=== PATIENT | female | born 1960 | race Caucasian/White ===

== ENCOUNTER 2020-04-06 19:46 | Emergency (ER) | payer MEDICARE, MEDICAID ==
--- NOTE | 2020-04-06 20:35 | EDM.PDOC ---
ED HPI GENERAL MEDICAL PROBLEM - General Chief Complaint: Cardiovascular Problem Stated Complaint: BP HIGH AND HEADACHE PACEMAKER POSSIBLE AFIB Time Seen by Provider: 04/06/20 20:05 Source of Information: Reports: Patient History Limitations: Reports: No Limitations - History of Present Illness INITIAL COMMENTS - FREE TEXT/NARRATIVE: Ms. Elder is a very pleasant 59-year-old woman who now presents the ED with palpitations, a headache, and a concern about elevated blood pressure. She states that her palpitations feel like regular, fast, but "hard" heartbeats. They began last night, however, the patient has been experiencing these on and off over the past 15 years. They usually occur at night. When present, they typically persist for 5 to 10 minutes, and recently she has been experiencing about 10-15 episodes per day, including today. She is feeling them even here in the ED, although her patient monitor indicates atrial pacing between 61 to 74 bpm during my evaluation. With respect to her headaches, she indicates her upper left head, for the past 4 days. She states that she does not often get headaches. He believes that her headache is related to her allergic rhinitis, since she has recently had nasal and sinus congestion. She has allergy medicine, but states that she has not taken it recently. She has been taking Tylenol to treat them. She also reports that her blood pressure has been elevated, up to 150/105 earlier tonight, and up to 186/124 earlier today. The patient states that she ordinarily has night sweats, which have not changed. She reports occasional chest pain, although no recent nausea, dyspnea, or sense of impending doom. The patient states that she has been self-tapering herself off of morphine, down from 120 mg/day to 60 mg/day. Her behavioral health physician is aware of this and is now guiding her. Her behavioral health physician has also begun to taper her off of Xanax that she has been on for about a year, starting yesterday. The patient had been taking 1.5 mg po QPM + prn, and is now to take 0.5 mg QAM and 1 mg QPM. The patient states that she has presumptive COPD, and that she takes an inhaled steroid with long-acting beta agonist twice a day. She also has albuterol, but states that she has not taken any recently. Here in the ED, the patient's initial BP is found to be elevated at 173/101, otherwise, she is hemodynamically stable, afebrile, saturating 100% on room air. Other than the above symptoms, the patient denies having a recent fever, chills, sore throat, ear pain, cough, dyspnea, nausea, vomiting, constipation, diarrhea, abdominal pain, urinary symptoms, recent weight gain or weight loss, recent bloody bowel movements or black bowel movements, recent joint aches, or rashes. The patient's PCP is Dr. Kavya Anderson. Her Neurologist is Dr. Margarita Barnoe. She has an appointment to meet and establish Dr. Jj Dunn as her [employer]mediary on 04/16/2020. He has already received an influenza vaccine this season. Headache Pain Score (Numeric/FACES): 3 - Related Data Allergies Allergy/AdvReac Type Severity Reaction Status Date / Time cortisone Allergy Other Verified 04/06/20 19:59 latex Allergy Other Verified 04/06/20 19:59 Penicillins Allergy Cannot Verified 04/06/20 19:59 Remember Sulfa (Sulfonamide Allergy Rash Verified 04/06/20 19:59 Antibiotics) Home Meds: Home Meds Albuterol [Proventil Neb Soln] 1 ampule INH TID 04/06/20 [History] Alendronate [Fosamax] 04/06/20 [History] Apixaban [Eliquis] 5 mg PO BID 04/06/20 [History] Budesonide/Formoterol Fumarate [Symbicort 160-4.5 Mcg Inhaler] 2 puff INH BID 04/06/20 [History] Cholecalciferol (Vitamin D3) [Vitamin D3] 5,000 unit PO DAILY 04/06/20 [History] Diclofenac Sodium [Voltaren] 04/06/20 [History] Divalproex Sodium 500 mg PO DAILY 04/06/20 [History] Famotidine 20 mg PO DAILY 04/06/20 [History] Furosemide 20 mg PO BID 04/06/20 [History] Metoprolol Succinate 50 mg PO BID 04/06/20 [History] Morphine Sulfate [Morphine Sulfate ER] 30 mg PO BID 04/06/20 [History] Pantoprazole Sodium [Protonix] 40 mg PO DAILY 04/06/20 [History] Triamterene/Hydrochlorothiazid [Triamterene-HCTZ 37.5-25 MG] 1 tab PO DAILY 04/06/20 [History] Verapamil [Calan] 80 mg PO DAILY 04/06/20 [History] atorvaSTATin [Lipitor] 10 mg PO DAILY 04/06/20 [History] busPIRone [Buspar] 5 mg OP DAILY 04/06/20 [History] Past Medical History HEENT History: Reports: Allergic Rhinitis (untreated), Impaired Vision Cardiovascular History: Reports: Afib (dx'd Jun 2019), High Cholesterol, Hypertension Respiratory History: Reports: COPD (suspected, not tested), Sleep Apnea (nightly CPAP 9) Gastrointestinal History: Reports: GERD 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) Musculoskeletal History: Reports: Osteoarthritis, Osteoporosis Neurological History: Reports: MS Psychiatric History: Reports: Anxiety, Depression, Other (See Below) (Fibromyalgia) Endocrine/Metabolic History: Reports: Obesity/BMI 30+ Hematologic History: Reports: B12 Deficiency - Infectious Disease History Infectious Disease History: Reports: Hepatitis C (treated and cured) - Past Surgical History HEENT Surgical History: Reports: Oral Surgery (dental extractions), Polypectomy (vocal cord, x 3), Tonsillectomy Cardiovascular Surgical History: Reports: Pacer (placed 2001 for bradycardia, not A-fib) GI Surgical History: Reports: Appendectomy, Cholecystectomy (around 2002) Female Surgical History: Reports: Hysterectomy (complete), Other (See Below) (Unilateral salpingectomy for tubal . Bladder suspension.) Musculoskeletal Surgical History: Reports: Arthroscopic Knee, Carpal Tunnel (bi lateral) Social & Family History - Family History Family Medical History: No Pertinent Family History - Tobacco Use Tobacco Use Status *Q: Current Every Day Tobacco User Years of Tobacco use: 46 Packs/Tins Daily: 0.3 Packs/Tins Daily Comment: Down from 1 ppd - Caffeine Use Caffeine Use: Reports: Coffee, Tea - Alcohol Use Alcohol Use History: No - Recreational Drug Use Recreational Drug Use: No - Living Situation & Occupation Living situation: Reports: , Alone Occupation: Disabled ED ROS GENERAL - Review of Systems Review Of Systems: Comprehensive ROS is negative, except as noted in HPI. ED EXAM, GENERAL - Physical Exam Exam: See Below Exam Limited By: No Limitations General Appearance: Alert, WD/WN, No Apparent Distress Eye Exam: Bilateral Eye: EOMI, Normal Inspection Ears: Normal External Exam, Hearing Grossly Normal Nose: Normal Inspection Throat/Mouth: Normal Inspection, Normal Lips, Normal Voice, No Airway Compromise Head: Atraumatic, Normocephalic Neck: Normal Inspection, Full Range of Motion Respiratory/Chest: No Respiratory Distress, Lungs Clear, Normal Breath Sounds, No Accessory Muscle Use Cardiovascular: Normal Peripheral Pulses, Regular Rate, Rhythm, No Edema, No Gallop, No JVD, No Murmur, No Rub Peripheral Pulses: 3+: Radial (L), Radial (R) GI/Abdominal: Normal Bowel Sounds, Soft, Non-Tender, No Organomegaly, No Distention, No Abnormal Bruit, No Mass Back Exam: Normal Inspection, Full Range of Motion, NT Extremities: Normal Inspection, Normal Range of Motion, No Pedal Edema, Normal Capillary Refill Neurological: Alert, Oriented, Normal Cognition, No Motor/Sensory Deficits Psychiatric: Normal Affect Skin Exam: Warm, Dry, Intact, Normal Color, No Rash #1 Interpretation EKG Date: 04/06/20 Time: 20:44 Rhythm: Other (Atrially paced) Rate (Beats/Min): 62 Sandwich: Normal P-Wave: Present QRS: Normal ST-T: Normal QT: Normal Comparison: NA - No Prior EKG Course - Vital Signs Last Recorded V/S: Last Vital Signs Temp 36.4 C 04/06/20 19:54 Pulse 70 04/06/20 19:54 Resp 20 04/06/20 19:54 BP 173/101 H 04/06/20 19:54 Pulse Ox 100 04/06/20 19:54 - Orders/Labs/Meds Orders: Active Orders 24 hr Category Date Time Status EKG Documentation Completion [RC] STAT Care 04/06/20 20:31 Active Chest 2V [CR] Stat Exams 04/06/20 20:31 Taken Labs: Laboratory Tests 04/06/20 04/06/20 Range/Units 20:49 20:49 WBC 4.90 (3.98-10.04) K/mm3 RBC 4.42 (3.98-5.22) M/mm3 Hgb 12.9 (11.2-15.7) gm/dl Hct 39.1 (34.1-44.9) % MCV 88.5 (79.4-94.8) fl MCH 29.2 (25.6-32.2) pg MCHC 33.0 (32.2-35.5) g/dl RDW Std Deviation 43.8 (36.4-46.3) fL Plt Count 184 (182-369) K/mm3 MPV 10.2 (9.4-12.3) fl Neutrophils % (Manual) 45 (40-60) % Band Neutrophils % 1 (0-10) % Lymphocytes % (Manual) 45 H (20-40) % Atypical Lymphs % 0 % Monocytes % (Manual) 7 (2-10) % Eosinophils % (Manual) 2 (0.7-5.8) % Basophils % (Manual) 0 L (0.1-1.2) Platelet Estimate Adequate RBC Morph Comment Normal Sodium 137 (136-145) mEq/L Potassium 4.2 (3.5-5.1) mEq/L Chloride 102 (98-107) mEq/L Carbon Dioxide 32 (21-32) mEq/L Anion Gap 7.2 (5-15) BUN 16 (7-18) mg/dL Creatinine 0.9 (0.55-1.02) mg/dL Est Cr Clr Drug Dosing 66.26 mL/min Estimated GFR (MDRD) > 60 (>60) mL/min BUN/Creatinine Ratio 17.8 (14-18) Glucose 99 (74-106) mg/dL Calcium 9.0 (8.5-10.1) mg/dL Magnesium 1.9 (1.8-2.4) mg/dl Total Bilirubin 0.3 (0.2-1.0) mg/dL AST 19 (15-37) U/L ALT 21 (14-59) U/L Alkaline Phosphatase 55 (46-116) U/L Troponin I < 0.017 (0.00-0.056) ng/mL Total Protein 7.4 (6.4-8.2) g/dl Albumin 3.4 (3.4-5.0) g/dl Globulin 4.0 gm/dL Albumin/Globulin Ratio 0.9 L (1-2) - Re-Assessments/Exams Free Text/Narrative Re-Assessment/Exam: 04/06/20 20:32 While the patient feels palpitations here in the ED, her patient monitor indicated a HR of 61 to 74 bpm, paced, during my entire evaluation.I think it is most likely that her symptoms, are related to her beginning a taper off of alprazolam last night, in the setting of her continuing taper of morphine. Nevertheless, I have ordered a work-up that includes several blood tests, IV chest x-ray, and an ECG. 04/06/20 22:27 2-view chest radiograph is read by the read as: 1. No acute cardiopulmonary process. 2. Incidental/nonacute findings are listed in the report. The patient's CBC, CMP, magnesium level, and troponin are all within normal limits/unremarkable. 04/06/20 22:30 Test results discussed with the patient. As above, today's work-up is completely unremarkable. I suspect that her sensation of palpitations is related to her beginning taper of Xanax. I explained to her that she should expect to have symptoms going forward, but that it is really important that she get off Xanax, therefore she should stay the course as recommended by her physician. She is agreeable. Departure - Departure Time of Disposition: 22:31 Disposition: Home, Self-Care 01 Condition: Good Clinical Impression: Palpitations, Headache, Elevated blood pressure reading - Discharge Information *PRESCRIPTION DRUG MONITORING PROGRAM REVIEWED*: Not Applicable *COPY OF PRESCRIPTION DRUG MONITORING REPORT IN PATIENT CARLYN: Not Applicable Referrals: Kavya Anderson MD [Primary Care Provider] - Jj Dunn MD [Ordering Only Provider] - Margarita Barone MD [Ordering Only Provider] - Forms: ED Department Discharge Additional Instructions: You were seen in the emergency room for intermittent heart palpitations, elevated blood pressure, and a headache. Work-up in the ER included several blood tests, a chest x-ray, and an ECG. Your ECG demonstrated an atrial paced rhythm at a normal rate. Otherwise, your entire work-up was completely normal. Based on your history, physical exam, and ER tests, your symptoms are most likely related to the tapering of your alprazolam (Xanax). As discussed, you should expect to have some symptoms when you taper off of alprazolam, however, it is really important that you do, and we recommend that you stay the course, as prescribed by your behavioral health physician. If any other problems, please do not hesitate to return to the ER. Sepsis Event Note (ED) - Evaluation Sepsis Screening Result: No Definite Risk - Focused Exam Vital Signs: Vital Signs Temp Pulse Resp BP Pulse Ox 12/12/20 19:54 36.4 C 70 20 173/101 H 100 - My Orders Last 24 Hours: My Active Orders 04/06/20 20:31 EKG Documentation Completion [RC] STAT Chest 2V [CR] Stat - Assessment/Plan Last 24 Hours: My Active Orders 04/06/20 20:31 EKG Documentation Completion [RC] STAT Chest 2V [CR] Stat
--- NOTE | 2020-04-07 09:51 | CR ---
Chest: 2 views of the chest were obtained. Comparison: No prior studies available. Findings: Heart size is within normal limits. Tortuous thoracic aorta is seen. Bichamber pacemaker is noted. Lungs are clear with no acute parenchymal change. Bony structures appear within normal limits for the patient's age. Impression: 1. Findings as noted above. 2. Nothing acute is seen. Diagnostic code #2 I agree with preliminary report from [facility], finalized on 04/06/20, 10:35 PM BEFORE [employer]
== END 2020-04-06 22:43 | disposition home or self-care (01) ==
LOC: JD.ED 19:46
DX: R00.2 Palpitations (principal); R51.9 Headache, unspecified; E78.00 Pure hypercholesterolemia, unspecified; I10 Essential (primary) hypertension; J44.9 Chronic obstructive pulmonary disease, unspecified; M19.90 Unspecified osteoarthritis, unspecified site; F41.9 Anxiety disorder, unspecified; F32.9 Major depressive disorder, single episode, unspecified; E66.9 Obesity, unspecified; F17.210 Nicotine dependence, cigarettes, uncomplicated; I48.91 Unspecified atrial fibrillation; K21.9 Gastro-esophageal reflux disease without esophagitis; G35 Multiple sclerosis; Z91.040 Latex allergy status; Z88.0 Allergy status to penicillin; Z88.2 Allergy status to sulfonamides; Z79.01 Long term (current) use of anticoagulants; Z79.899 Other long term (current) drug therapy; Z68.30 Body mass index [BMI] 30.0-30.9, adult
CPT/HCPCS: 36415; 71046; 71046-26; 80053; 83735; 84484; 85007; 85027; 93005; 93010; 99284; 99285-25

== ENCOUNTER 2020-07-26 17:24 | Emergency (ER) | payer MEDICARE, MEDICAID | END 2020-07-26 17:33 | disposition left against medical advice (07) | LOC: JD.ED 17:24 | DX: Z53.21 Procedure and treatment not carried out due to patient leaving prior to being seen by health care provider (principal) ==

== ENCOUNTER 2020-08-16 14:19 | Emergency (ER) | payer MEDICARE, MEDICAID ==
--- NOTE | 2020-08-16 14:55 | CR ---
Chest: PA and lateral views of the chest are obtained. Comparison: Prior chest x-ray of 04/06/20. Heart size and mediastinum are within normal limits. Slight tortuosity of the thoracic aorta is noted. Minimal scarring is seen within the lateral left costophrenic angle. Lungs otherwise are clear. Bichamber pacemaker is noted. No acute osseous abnormality is appreciated. Surgical clips are seen from prior cholecystectomy. Impression: 1. Findings believed to be incidental as noted above. 2. Nothing acute is seen. Diagnostic code #2
--- NOTE | 2020-08-16 15:02 | EDM.PDOC ---
ED HPI GENERAL MEDICAL PROBLEM - General Chief Complaint: Chest Pain Stated Complaint: CHEST PAIN Time Seen by Provider: 08/16/20 14:22 Source of Information: Reports: Patient, RN Notes Reviewed History Limitations: Reports: No Limitations - History of Present Illness INITIAL COMMENTS - FREE TEXT/NARRATIVE: Patient is a 60-year-old female presenting to the emergency department with complaints of intermittent left-sided chest pain. She states that symptoms began around 9 AM this morning. She describes it as a sharp stabbing pain that comes and goes. When symptoms initially began, the pain would last for a number of minutes, "taking her breath away ". At this time, the pain occurs very briefly. Lasts only a second and then resolves. She has a history of A. fib and has a will chamber pacemaker. She also has a history of MS and fibromyalgia. Her primary care provider is in the process of weaning her off of her morphine at the patient's request. At one time she was on 120 mg/day of morphine. At this time she is only on 30 mg of morphine. Her last titration was in the middle of June and she was reduced from 45 mg down to 30 mg. She denies any shortness of breath at this time. Pain does not radiate anywhere and was not present at the time my exam. She is on Eliquis for history of A. fib. Left Chest Pain Score (Numeric/FACES): 10 - Related Data Allergies Allergy/AdvReac Type Severity Reaction Status Date / Time cortisone Allergy Other Verified 04/06/20 19:59 latex Allergy Other Verified 04/06/20 19:59 Penicillins Allergy Cannot Verified 04/06/20 19:59 Remember Sulfa (Sulfonamide Allergy Rash Verified 04/06/20 19:59 Antibiotics) Home Meds: Home Meds Albuterol [Proventil Neb Soln] 1 ampule INH TID 04/06/20 [History] Alendronate [Fosamax] 04/06/20 [History] Apixaban [Eliquis] 5 mg PO BID 04/06/20 [History] Budesonide/Formoterol Fumarate [Symbicort 160-4.5 Mcg Inhaler] 2 puff INH BID 04/06/20 [History] Cholecalciferol (Vitamin D3) [Vitamin D3] 5,000 unit PO DAILY 04/06/20 [History] Diclofenac Sodium [Voltaren] 12/12/20 [History] Divalproex Sodium 500 mg PO DAILY 04/06/20 [History] Famotidine 20 mg PO DAILY 04/06/20 [History] Furosemide 20 mg PO BID 04/06/20 [History] Metoprolol Succinate 50 mg PO BID 04/06/20 [History] Morphine Sulfate [Morphine Sulfate ER] 30 mg PO BID 04/06/20 [History] Pantoprazole Sodium [Protonix] 40 mg PO DAILY 04/06/20 [History] Triamterene/Hydrochlorothiazid [Triamterene-HCTZ 37.5-25 MG] 1 tab PO DAILY 04/06/20 [History] Verapamil [Calan] 80 mg PO DAILY 04/06/20 [History] atorvaSTATin [Lipitor] 10 mg PO DAILY 04/06/20 [History] busPIRone [Buspar] 5 mg OP DAILY 04/06/20 [History] Past Medical History HEENT History: Reports: Allergic Rhinitis (untreated), Impaired Vision Cardiovascular History: Reports: Afib (dx'd Jun 2019), High Cholesterol, Hypertension Respiratory History: Reports: COPD (suspected, not tested), Sleep Apnea (nightly CPAP 9) Gastrointestinal History: Reports: GERD 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) Musculoskeletal History: Reports: Osteoarthritis, Osteoporosis Neurological History: Reports: MS Psychiatric History: Reports: Anxiety, Depression, Other (See Below) (Fibromyalgia) Endocrine/Metabolic History: Reports: Obesity/BMI 30+ Hematologic History: Reports: B12 Deficiency - Infectious Disease History Infectious Disease History: Reports: Hepatitis C (treated and cured) Other Infectious Disease History: cured hep c - Past Surgical History HEENT Surgical History: Reports: Oral Surgery (dental extractions), Polypectomy (vocal cord, x 3), Tonsillectomy Cardiovascular Surgical History: Reports: Pacer (placed 2001 for bradycardia, not A-fib) GI Surgical History: Reports: Appendectomy, Cholecystectomy (around 2002) Female Surgical History: Reports: Hysterectomy (complete), Other (See Below) (Unilateral salpingectomy for tubal . Bladder suspension.) Musculoskeletal Surgical History: Reports: Arthroscopic Knee, Carpal Tunnel (bilateral) Social & Family History - Family History Family Medical History: No Pertinent Family History - Caffeine Use Caffeine Use: Reports: Coffee, Tea - Living Situation & Occupation Living situation: Reports: , Alone Occupation: Disabled ED ROS GENERAL - Review of Systems Review Of Systems: See Below Constitutional: Reports: No Symptoms. Denies: Fever, Chills, Weakness HEENT: Reports: No Symptoms Respiratory: Reports: No Symptoms. Denies: Shortness of Breath, Cough Cardiovascular: Reports: Chest Pain (intermittent). Denies: Lightheadedness, Palpitations, Syncope Endocrine: Reports: No Symptoms GI/Abdominal: Reports: No Symptoms : Reports: No Symptoms Musculoskeletal: Reports: No Symptoms Skin: Reports: No Symptoms Neurological: Reports: No Symptoms Psychiatric: Reports: No Symptoms Hematologic/Lymphatic: Reports: No Symptoms Immunologic: Reports: No Symptoms ED EXAM, GENERAL - Physical Exam Exam: See Below Exam Limited By: No Limitations General Appearance: Alert, WD/WN, No Apparent Distress Respiratory/Chest: No Respiratory Distress, Lungs Clear, Normal Breath Sounds, No Accessory Muscle Use, Other (tenderness to palpation to the left 4 and 5th ribs, mid clavicular line) Cardiovascular: Normal Peripheral Pulses, Regular Rate, Rhythm, No Edema, No Gallop, No JVD, No Murmur, No Rub Neurological: Alert, Oriented, CN II-XII Intact, Normal Cognition, Normal Gait, Normal Reflexes, No Motor/Sensory Deficits Psychiatric: Normal Affect, Normal Mood Skin Exam: Warm, Dry, Intact, Normal Color, No Rash Course - Vital Signs Last Recorded V/S: Last Vital Signs Temp 97.4 F 08/16/20 16:49 Pulse 64 08/16/20 16:49 Resp 16 08/16/20 16:49 BP 152/92 H 08/16/20 16:49 Pulse Ox 96 08/16/20 16:49 - Orders/Labs/Meds Labs: Laboratory Tests 08/16/20 08/16/20 08/16/20 Range/Units 14:45 14:45 14:45 WBC 5.65 (3.98-10.04) K/mm3 RBC 4.77 (3.98-5.22) M/mm3 Hgb 14.4 D (11.2-15.7) gm/dl Hct 43.1 (34.1-44.9) % MCV 90.4 (79.4-94.8) fl MCH 30.2 (25.6-32.2) pg MCHC 33.4 (32.2-35.5) g/dl RDW Std Deviation 45.2 (36.4-46.3) fL Plt Count 237 (182-369) K/mm3 MPV 10.2 (9.4-12.3) fl Neut % (Auto) 40.1 (34.0-71.1) % Lymph % (Auto) 43.5 (19.3-51.7) % Edmunds % (Auto) 9.9 (4.7-12.5) % Eos % (Auto) 5.8 (0.7-5.8) Baso % (Auto) 0.5 (0.1-1.2) % Neut # (Auto) 2.26 (1.56-6.13) K/mm3 Lymph # (Auto) 2.46 (1.18-3.74) K/mm3 Edmunds # (Auto) 0.56 H (0.24-0.36) K/mm3 Eos # (Auto) 0.33 (0.04-0.36) K/mm3 Baso # (Auto) 0.03 (0.01-0.08) K/mm3 D-Dimer, Quantitative 0.27 (0.19-0.50) mg/L Sodium 145 (136-145) mEq/L Potassium 4.1 (3.5-5.1) mEq/L Chloride 104 (98-107) mEq/L Carbon Dioxide 31 (21-32) mEq/L Anion Gap 14.1 (5-15) BUN 12 (7-18) mg/dL Creatinine 0.9 (0.55-1.02) mg/dL Est Cr Clr Drug Dosing 65.45 mL/min Estimated GFR (MDRD) > 60 (>60) mL/min BUN/Creatinine Ratio 13.3 L (14-18) Glucose 88 (74-106) mg/dL Calcium 9.4 (8.5-10.1) mg/dL Magnesium (1.8-2.4) mg/dl Total Bilirubin 0.3 (0.2-1.0) mg/dL AST 16 (15-37) U/L ALT 25 (14-59) U/L Alkaline Phosphatase 43 L (46-116) U/L Troponin I < 0.017 (0.00-0.056) ng/mL C-Reactive Protein <0.2 (<1.0) mg/dL Total Protein 8.4 H (6.4-8.2) g/dl Albumin 4.1 (3.4-5.0) g/dl Globulin 4.3 gm/dL Albumin/Globulin Ratio 1.0 (1-2) 08/16/20 Range/Units 14:45 WBC (3.98-10.04) K/mm3 RBC (3.98-5.22) M/mm3 Hgb (11.2-15.7) gm/dl Hct (34.1-44.9) % MCV (79.4-94.8) fl MCH (25.6-32.2) pg MCHC (32.2-35.5) g/dl RDW Std Deviation (36.4-46.3) fL Plt Count (182-369) K/mm3 MPV (9.4-12.3) fl Neut % (Auto) (34.0-71.1) % Lymph % (Auto) (19.3-51.7) % Edmunds % (Auto) (4.7-12.5) % Eos % (Auto) (0.7-5.8) Baso % (Auto) (0.1-1.2) % Neut # (Auto) (1.56-6.13) K/mm3 Lymph # (Auto) (1.18-3.74) K/mm3 Edmunds # (Auto) (0.24-0.36) K/mm3 Eos # (Auto) (0.04-0.36) K/mm3 Baso # (Auto) (0.01-0.08) K/mm3 D-Dimer, Quantitative (0.19-0.50) mg/L Sodium (136-145) mEq/L Potassium (3.5-5.1) mEq/L Chloride (98-107) mEq/L Carbon Dioxide (21-32) mEq/L Anion Gap (5-15) BUN (7-18) mg/dL Creatinine (0.55-1.02) mg/dL Est Cr Clr Drug Dosing mL/min Estimated GFR (MDRD) (>60) mL/min BUN/Creatinine Ratio (14-18) Glucose (74-106) mg/dL Calcium (8.5-10.1) mg/dL Magnesium 2.1 (1.8-2.4) mg/dl Total Bilirubin (0.2-1.0) mg/dL AST (15-37) U/L ALT (14-59) U/L Alkaline Phosphatase (46-116) U/L Troponin I (0.00-0.056) ng/mL C-Reactive Protein (<1.0) mg/dL Total Protein (6.4-8.2) g/dl Albumin (3.4-5.0) g/dl Globulin gm/dL Albumin/Globulin Ratio (1-2) - Re-Assessments/Exams Free Text/Narrative Re-Assessment/Exam: Patient is a 60-year-old female presenting to the emergency department with complaints of intermittent left-sided chest pain. She states symptoms began around 9:00 this morning. When initially began, the pain was present for approximately an hour at a time. She now just gets occasional sharp pain in the area which lasts just a second. She has a history of A. fib. Vital signs are stable. I have ordered CBC, CMP, CRP, D-dimer, troponin, magnesium, EKG, and chest x-ray. 08/16/20 16:09 Hematology is grossly unremarkable. Troponin is undetectable D-dimer is negative. EKG shows an atrial paced rhythm with no signs of ischemia. Chest x- ray shows no acute abnormalities. Discussed with patient that this discomfort is likely chest wall muscle spasms. She has had no recurrence of the chest pain in the last half hour. We will discharge her home. Discussed return precautions. Discharge instructions as documented. Departure - Departure Time of Disposition: 16:10 Disposition: Home, Self-Care 01 Condition: Good Clinical Impression: Atypical chest pain Instructions: Nonspecific Chest Pain, Adult Referrals: Kavya Anderson MD [Primary Care Provider] - Forms: ED Department Discharge Additional Instructions: You were seen in the emergency department today for evaluation with regards to intermittent left-sided chest pain which began around 9:00 this morning. Work- up included blood work, EKG, and chest x-ray. Results of your work-up were found to be normal. Your cardiac enzyme is undetectable indicating that you are not having a heart attack. Your EKG showed an atrial paced rhythm. There was no evidence of A. fib. While the exact cause of your chest discomfort is unknown, it is likely related to chest wall muscle spasms. Recommend intermittent Tylenol or ibuprofen as needed for discomfort. You may apply heat to the area as well. If you should experience any new or worsening symptoms of concern, please not hesitate to return to the emergency department for reevaluation. Sepsis Event Note (ED) - Evaluation Sepsis Screening Result: No Definite Risk - Focused Exam Vital Signs: Vital Signs Temp Pulse Resp BP Pulse Ox 08/16/20 16:49 97.4 F 64 16 152/92 H 96 08/16/20 14:25 97.5 F 63 16 153/92 H 100
== END 2020-08-16 16:50 | disposition home or self-care (01) ==
LOC: JD.ED 14:19
DX: R07.89 Other chest pain (principal); I48.91 Unspecified atrial fibrillation; E78.00 Pure hypercholesterolemia, unspecified; I10 Essential (primary) hypertension; J44.9 Chronic obstructive pulmonary disease, unspecified; K21.9 Gastro-esophageal reflux disease without esophagitis; G35 Multiple sclerosis; E66.9 Obesity, unspecified; Z68.29 Body mass index [BMI] 29.0-29.9, adult; Z88.8 Allergy status to other drugs, medicaments and biological substances; Z91.040 Latex allergy status; Z88.0 Allergy status to penicillin; Z88.2 Allergy status to sulfonamides; Z79.01 Long term (current) use of anticoagulants; Z79.899 Other long term (current) drug therapy
CPT/HCPCS: 36415; 71046; 71046-26; 80053; 83735; 84484; 85025; 85379; 86140; 93005; 99283; 99285-25

== ENCOUNTER 2021-01-11 08:17 | Emergency (ER) | payer MEDICARE, MEDICAID ==
--- NOTE | 2021-01-11 08:34 | EDM.PDOC ---
ED HPI GENERAL MEDICAL PROBLEM - General Chief Complaint: Chest Pain Stated Complaint: RT SIDE CHEST PAIN WHEN BREATHING Time Seen by Provider: 01/11/21 08:33 - History of Present Illness INITIAL COMMENTS - FREE TEXT/NARRATIVE: 60-year-old female presents the emergency room with chest pain. This pain has been present for about an hour or so it is on the right lower chest anterior. It is aggravated by change position and deep breathing. The patient has a history of pleurisy in the past and this reminds her of this. Other than the chest discomfort she is not having any breathing difficulties or shortness of breath. Patient has chronic lower extremity edema she has not taken her Lasix at this morning. Patient has a history of lower extremity edema and has mild edema at this point, this is not unusual for her. Right Lower Chest Pain Score (Numeric/FACES): 10 - Related Data Allergies Allergy/AdvReac Type Severity Reaction Status Date / Time cortisone Allergy Other Verified 01/11/21 08:30 latex Allergy Other Verified 01/11/21 08:30 Penicillins Allergy Cannot Verified 01/11/21 08:30 Remember Sulfa (Sulfonamide Allergy Rash Verified 01/11/21 08:30 Antibiotics) Home Meds: Home Meds Albuterol [Proventil Neb Soln] 1 ampule INH TID 04/06/20 [History] Alendronate [Fosamax] 04/06/20 [History] Apixaban [Eliquis] 5 mg PO BID 04/06/20 [History] Budesonide/Formoterol Fumarate [Symbicort 160-4.5 Mcg Inhaler] 2 puff INH BID 04/06/20 [History] Cholecalciferol (Vitamin D3) [Vitamin D3] 5,000 unit PO DAILY 04/06/20 [History] Diclofenac Sodium [Voltaren] 04/06/20 [History] Divalproex Sodium 500 mg PO DAILY 04/06/20 [History] Famotidine 20 mg PO DAILY 04/06/20 [History] Furosemide 20 mg PO BID 04/06/20 [History] Metoprolol Succinate 50 mg PO BID 04/06/20 [History] Morphine Sulfate [Morphine Sulfate ER] 30 mg PO BID 04/06/20 [History] Pantoprazole Sodium [Protonix] 40 mg PO DAILY 04/06/20 [History] Triamterene/Hydrochlorothiazid [Triamterene-HCTZ 37.5-25 MG] 1 tab PO DAILY 04/06/20 [History] Verapamil [Calan] 80 mg PO DAILY 04/06/20 [History] atorvaSTATin [Lipitor] 10 mg PO DAILY 04/06/20 [History] busPIRone [Buspar] 5 mg OP DAILY 04/06/20 [History] Past Medical History HEENT History: Reports: Allergic Rhinitis, Impaired Vision Cardiovascular History: Reports: Afib, High Cholesterol, Hypertension Respiratory History: Reports: COPD, Sleep Apnea Gastrointestinal History: Reports: GERD COLLAR SEWER History: Reports: Ectopic Musculoskeletal History: Reports: Osteoporosis, Osteoarthritis Neurological History: Reports: Headaches, Chronic, MS, Other (See Below) Other Neuro History: fibromyalgia Psychiatric History: Reports: Addiction, Anxiety, Depression, Other (See Below) Other Psychiatric History: pain management Endocrine/Metabolic History: Reports: Obesity/BMI 30+ Hematologic History: Reports: B12 Deficiency Immunologic History: Reports: Other (See Below) Other Immunologic History: states "I usually get everything that goes by." - Infectious Disease History Infectious Disease History: Reports: Hepatitis C, Shingles Other Infectious Disease History: cured hep c - Past Surgical History HEENT Surgical History: Reports: Oral Surgery, Polypectomy, Tonsillectomy Cardiovascular Surgical History: Reports: Pacer GI Surgical History: Reports: Appendectomy, Cholecystectomy Female Surgical History: Reports: Hysterectomy, Other (See Below) Musculoskeletal Surgical History: Reports: Arthroscopic Knee, Carpal Tunnel Social & Family History - Family History Family Medical History: No Pertinent Family History - Caffeine Use Caffeine Use: Reports: Coffee, Tea - Living Situation & Occupation Living situation: Reports: Alone, Occupation: Disabled ED ROS GENERAL - Review of Systems Review Of Systems: See Below Constitutional: Reports: No Symptoms HEENT: Reports: No Symptoms Respiratory: Reports: Other (Deep breathing causes pain) Cardiovascular: Reports: Chest Pain (With deep breathing) Endocrine: Reports: No Symptoms GI/Abdominal: Reports: No Symptoms : Reports: No Symptoms Neurological: Reports: No Symptoms ED EXAM, GENERAL - Physical Exam Exam: See Below Exam Limited By: No Limitations General Appearance: Alert, No Apparent Distress Head: Atraumatic, Normocephalic Neck: Normal Inspection, Supple, Non-Tender, Full Range of Motion. No: Lymphadenopathy (L), Lymphadenopathy (R) Respiratory/Chest: No Respiratory Distress, Lungs Clear, Normal Breath Sounds Cardiovascular: Regular Rate, Rhythm, No Murmur, Other (Trace lower extremity edema, normal for her) GI/Abdominal: Normal Bowel Sounds, Soft, Non-Tender, No Organomegaly, No Distention, No Abnormal Bruit, No Mass Back Exam: Normal Inspection. No: CVA Tenderness (L), CVA Tenderness (R) Extremities: Normal Inspection, Pedal Edema (Trace normal for her she does not take her Lasix at today) Neurological: Alert, Oriented, Normal Cognition #1 Interpretation EKG Date: 01/11/21 Rhythm: Other (Atrial paced rate 61) [place]: Normal P-Wave: Present QRS: Other ST-T: Other (Inverted T waves lead III) QT: Normal Comparison: No Change (No significant change from 08/16/2020) EKG Interpretation Comments: Abnormal EKG Course - Vital Signs Last Recorded V/S: Last Vital Signs Temp 36.1 C 01/11/21 11:15 Pulse 62 01/11/21 11:15 Resp 13 01/11/21 11:15 BP 122/67 01/11/21 11:15 Pulse Ox 100 01/11/21 11:15 - Orders/Labs/Meds Orders: Active Orders 24 hr Category Date Time Status Sodium Chloride 0.9% [Saline Flush] Med 01/11/21 11:31 Active 10 ml FLUSH ONETIME PRN Medication Orders Sodium Chloride (Sodium Chloride 0.9% 10 Ml Syringe) 10 ml FLUSH ONETIME PRN PRN Reason: Keep Vein Open Last Admin: 01/11/21 12:45 Dose: 10 ml Documented by: ISAAC Labs: Laboratory Tests 01/11/21 01/11/21 01/11/21 Range/Units 08:35 08:35 08:35 WBC 5.81 (3.98-10.04) K/mm3 RBC 4.67 (3.98-5.22) M/mm3 Hgb 14.7 (11.2-15.7) gm/dl Hct 43.3 (34.1-44.9) % MCV 92.7 (79.4-94.8) fl MCH 31.5 (25.6-32.2) pg MCHC 33.9 (32.2-35.5) g/dl RDW Std Deviation 49.2 H (36.4-46.3) fL Plt Count 242 (182-369) K/mm3 MPV 10.7 (9.4-12.3) fl Neut % (Auto) 60.8 (34.0-71.1) % Lymph % (Auto) 28.4 (19.3-51.7) % [place] % (Auto) 7.9 (4.7-12.5) % Eos % (Auto) 2.4 (0.7-5.8) Baso % (Auto) 0.3 (0.1-1.2) % Neut # (Auto) 3.53 (1.56-6.13) K/mm3 Lymph # (Auto) 1.65 (1.18-3.74) K/mm3 [place] # (Auto) 0.46 H (0.24-0.36) K/mm3 Eos # (Auto) 0.14 (0.04-0.36) K/mm3 Baso # (Auto) 0.02 (0.01-0.08) K/mm3 ESR (0-20) mm/hr PT 10.8 (9.7-12.0) SECONDS INR 0.97 APTT 29.0 (21.7-31.4) SECONDS D-Dimer, Quantitative (0.19-0.50) mg/L Sodium 141 (136-145) mEq/L Potassium 3.7 (3.5-5.1) mEq/L Chloride 106 (98-107) mEq/L Carbon Dioxide 28 (21-32) mEq/L Anion Gap 10.7 (5-15) BUN 7 (7-18) mg/dL Creatinine 0.8 (0.55-1.02) mg/dL Est Cr Clr Drug Dosing 73.63 mL/min Estimated GFR (MDRD) > 60 (>60) mL/min BUN/Creatinine Ratio 8.8 L (14-18) Glucose 79 (70-99) mg/dL Calcium 9.1 (8.5-10.1) mg/dL Total Bilirubin 0.5 (0.2-1.0) mg/dL AST 13 L (15-37) U/L ALT 20 (14-59) U/L Alkaline Phosphatase 40 L (46-116) U/L Troponin I < 0.017 (0.00-0.056) ng/mL C-Reactive Protein <0.2 (<1.0) mg/dL Total Protein 8.2 (6.4-8.2) g/dl Albumin 4.2 (3.4-5.0) g/dl Globulin 4.0 gm/dL Albumin/Globulin Ratio 1.1 (1-2) Lipase (73-393) U/L SARS-CoV-2 RNA (ANITA) (NEGATIVE) 01/11/21 01/11/21 01/11/21 Range/Units 08:35 08:35 08:35 WBC (3.98-10.04) K/mm3 RBC (3.98-5.22) M/mm3 Hgb (11.2-15.7) gm/dl Hct (34.1-44.9) % MCV (79.4-94.8) fl MCH (25.6-32.2) pg MCHC (32.2-35.5) g/dl RDW Std Deviation (36.4-46.3) fL Plt Count (182-369) K/mm3 MPV (9.4-12.3) fl Neut % (Auto) (34.0-71.1) % Lymph % (Auto) (19.3-51.7) % [place] % (Auto) (4.7-12.5) % Eos % (Auto) (0.7-5.8) Baso % (Auto) (0.1-1.2) % Neut # (Auto) (1.56-6.13) K/mm3 Lymph # (Auto) (1.18-3.74) K/mm3 [place] # (Auto) (0.24-0.36) K/mm3 Eos # (Auto) (0.04-0.36) K/mm3 Baso # (Auto) (0.01-0.08) K/mm3 ESR 7 (0-20) mm/hr PT (9.7-12.0) SECONDS INR APTT (21.7-31.4) SECONDS D-Dimer, Quantitative 0.20 (0.19-0.50) mg/L Sodium (136-145) mEq/L Potassium (3.5-5.1) mEq/L Chloride (98-107) mEq/L Carbon Dioxide (21-32) mEq/L Anion Gap (5-15) BUN (7-18) mg/dL Creatinine (0.55-1.02) mg/dL Est Cr Clr Drug Dosing mL/min Estimated GFR (MDRD) (>60) mL/min BUN/Creatinine Ratio (14-18) Glucose (70-99) mg/dL Calcium (8.5-10.1) mg/dL Total Bilirubin (0.2-1.0) mg/dL AST (15-37) U/L ALT (14-59) U/L Alkaline Phosphatase (46-116) U/L Troponin I (0.00-0.056) ng/mL C-Reactive Protein (<1.0) mg/dL Total Protein (6.4-8.2) g/dl Albumin (3.4-5.0) g/dl Globulin gm/dL Albumin/Globulin Ratio (1-2) Lipase 84 (73-393) U/L SARS-CoV-2 RNA (ANITA) (NEGATIVE) 01/11/21 01/11/21 Range/Units 09:15 11:47 WBC (3.98-10.04) K/mm3 RBC (3.98-5.22) M/mm3 Hgb (11.2-15.7) gm/dl Hct (34.1-44.9) % MCV (79.4-94.8) fl MCH (25.6-32.2) pg MCHC (32.2-35.5) g/dl RDW Std Deviation (36.4-46.3) fL Plt Count (182-369) K/mm3 MPV (9.4-12.3) fl Neut % (Auto) (34.0-71.1) % Lymph % (Auto) (19.3-51.7) % [place] % (Auto) (4.7-12.5) % Eos % (Auto) (0.7-5.8) Baso % (Auto) (0.1-1.2) % Neut # (Auto) (1.56-6.13) K/mm3 Lymph # (Auto) (1.18-3.74) K/mm3 [place] # (Auto) (0.24-0.36) K/mm3 Eos # (Auto) (0.04-0.36) K/mm3 Baso # (Auto) (0.01-0.08) K/mm3 ESR (0-20) mm/hr PT (9.7-12.0) SECONDS INR APTT (21.7-31.4) SECONDS D-Dimer, Quantitative (0.19-0.50) mg/L Sodium (136-145) mEq/L Potassium (3.5-5.1) mEq/L Chloride (98-107) mEq/L Carbon Dioxide (21-32) mEq/L Anion Gap (5-15) BUN (7-18) mg/dL Creatinine (0.55-1.02) mg/dL Est Cr Clr Drug Dosing mL/min Estimated GFR (MDRD) (>60) mL/min BUN/Creatinine Ratio (14-18) Glucose (70-99) mg/dL Calcium (8.5-10.1) mg/dL Total Bilirubin (0.2-1.0) mg/dL AST (15-37) U/L ALT (14-59) U/L Alkaline Phosphatase (46-116) U/L Troponin I < 0.017 (0.00-0.056) ng/mL C-Reactive Protein (<1.0) mg/dL Total Protein (6.4-8.2) g/dl Albumin (3.4-5.0) g/dl Globulin gm/dL Albumin/Globulin Ratio (1-2) Lipase (73-393) U/L SARS-CoV-2 RNA (ANITA) Negative (NEGATIVE) Meds: Medications Generic Name Dose Route Start Last Admin Trade Name Freq PRN Reason Stop Dose Admin Sodium Chloride 10 ml 01/11/21 11:31 01/11/21 12:45 Sodium Chloride 0.9% 10 Ml Syringe FLUSH 10 ml ONETIME PRN Administration Keep Vein Open Discontinued Medications Generic Name Dose Route Start Last Admin Trade Name Freq PRN Reason Stop Dose Admin Diatrizoate Meglum/Diatrizoate Sod 40 ml 01/11/21 11:31 01/11/21 12:46 Diatrizoate Meglumine/Diatrizoate Sodium 37% 120 Ml Bottle PO 01/11/21 11:32 30 ml ONETIME ONE Administration Iopamidol 100 ml 01/11/21 11:31 01/11/21 12:44 Iopamidol 612 Mg/Ml 100 Ml Bottle IVPUSH 01/11/21 11:32 100 ml ONETIME ONE Administration Morphine Sulfate 4 mg 01/11/21 08:52 01/11/21 09:08 Morphine 4 Mg/Ml Syringe IVPUSH 01/11/21 08:53 Not Given ONETIME ONE Morphine Sulfate 4 mg 01/11/21 08:55 01/11/21 09:14 Morphine 4 Mg/Ml Syringe IVPUSH 01/11/21 08:56 4 mg ONETIME ONE Administration Morphine Sulfate 2 mg 01/11/21 11:01 01/11/21 11:09 Morphine 2 Mg/Ml Syringe IVPUSH 01/11/21 11:02 2 mg ONETIME ONE Administration - Re-Assessments/Exams Free Text/Narrative Re-Assessment/Exam: 01/11/21 08:55 Labs and x-ray ordered nothing acute noted on EKG this pain sounds to be pleuritic or musculoskeletal. Will hold off on aspirin as the patient is on Eliquis at this time. 01/11/21 13:11 Patient second troponin was less than or detectable limits. She did have a CT done that really did not show anything diagnostic there is some questionable wall thickening of the sigmoid colon as well as a small portion of the descending colon patient not having symptoms like the. The patient is doing better at this time without any new pain medication I am wondering about maybe some diaphragm spasm I discussed this with the patient and she says she has had this in the past. At any rate she would like to go home we will discharge at this time. Departure - Departure Time of Disposition: 13:12 Disposition: Home, Self-Care 01 Clinical Impression: Right upper quadrant abdominal pain, Spasm of diaphragm - Discharge Information Referrals: Kavya Anderson MD [Primary Care Provider] - Forms: ED Department Discharge Additional Instructions: Return to the emergency room with any questions problems or worsening symptoms. Tylenol as needed for discomfort. Sepsis Event Note (ED) - Evaluation Sepsis Screening Result: No Definite Risk - Focused Exam Vital Signs: Vital Signs Temp Pulse Resp BP Pulse Ox 01/11/21 11:15 36.1 C 62 13 122/67 100 01/11/21 09:45 36.1 C 63 13 142/101 H 99 01/11/21 08:20 36.1 C 62 14 154/96 H 99 - My Orders Last 24 Hours: My Active Orders 01/11/21 11:31 Sodium Chloride 0.9% [Saline Flush] 10 ml FLUSH ONETIME PRN - Assessment/Plan Last 24 Hours: My Active Orders 01/11/21 11:31 Sodium Chloride 0.9% [Saline Flush] 10 ml FLUSH ONETIME PRN
[2021-01-11] MEDS ORDERED: Morphine 4 MG/ML Syringe IVPUSH ONE ×2 (08:52→08:55)
--- NOTE | 2021-01-11 09:22 | CR ---
Chest: Portable view of the chest was obtained. Comparison: Prior chest x-ray of 08/16/20. Heart size and mediastinum are normal. Bichamber pacemaker is seen. Surgical clips are noted from prior cholecystectomy. Lungs are clear. No acute osseous abnormality is appreciated. Impression: 1. Findings as noted above. 2. Nothing acute is appreciated on portable chest x-ray. Diagnostic code #2
[2021-01-11] MEDS ORDERED: Morphine 2 MG/ML SYRINGE IVPUSH ONE (11:01)
[2021-01-11] MEDS ORDERED: Sodium Chloride 0.9% 10 ML Syringe FLUSH PRN (11:31)
[2021-01-11] MEDS ORDERED: Iopamidol 612 MG/ML 100 ML Bottle IVPUSH ONE (11:31)
[2021-01-11] MEDS ORDERED: Diatrizoate Meglumine/Diatrizoate Sodium 37% 120 ML Bottle PO ONE (11:31)
--- NOTE | 2021-01-11 13:06 | CT ---
CT abdomen and pelvis Technique: Multiple axial sections were obtained from above the dome of the diaphragm inferiorly through the pubic symphysis. Intravenous and oral contrast were utilized. Delayed images were obtained through the bladder. Reconstructed coronal and sagittal images were also obtained. Findings: Visualized lung bases show nothing acute. Liver shows no focal parenchymal abnormality. Adrenal glands show no nodule. Surgical clips are seen from prior cholecystectomy. Common bile duct measures 1.1 cm which is felt to be within normal limits for this post cholecystectomy patient. Kidneys show symmetric contrast enhancement without hydronephrosis or mass. Pancreas shows no discrete abnormality. Abdominal aorta shows atherosclerotic calcification which continues into the iliac vessels. No retroperitoneal adenopathy or mesenteric abnormalities are seen. No pelvic mass or adenopathy is seen. Surgical clips are seen within the abdomen from prior appendectomy. Questionable wall thickening is suggested within the sigmoid colon as well as within a small portion of the descending colon. Delayed images shows contrast within the distal ureters and within the bladder. Duplicated collecting system is noted on the left side which shows no dilatation. Bone window settings were reviewed which show mild scattered degenerative change throughout the spine. Impression: 1. Questionable wall thickening within the sigmoid colon as well as small portion of the descending colon. Please correlate if patient has any symptoms of nonspecific colitis. 2. Prior cholecystectomy. Presumed prior appendectomy. 3. Other findings which are believed to be incidental as described above. Diagnostic code #3
== END 2021-01-11 13:15 | disposition home or self-care (01) ==
LOC: JD.ED 08:17
DX: R06.6 Hiccough (principal); J44.9 Chronic obstructive pulmonary disease, unspecified; K21.9 Gastro-esophageal reflux disease without esophagitis; E78.00 Pure hypercholesterolemia, unspecified; I10 Essential (primary) hypertension; E66.9 Obesity, unspecified; Z68.30 Body mass index [BMI] 30.0-30.9, adult; Z79.01 Long term (current) use of anticoagulants; Z79.899 Other long term (current) drug therapy; Z91.040 Latex allergy status; Z88.2 Allergy status to sulfonamides; Z88.0 Allergy status to penicillin; Z88.8 Allergy status to other drugs, medicaments and biological substances; Z20.822 Contact with and (suspected) exposure to COVID-19
CPT/HCPCS: 36415; 71045; 74177; 80053; 83690; 84484; 85025; 85379; 85610; 85652; 85730; 86140; 93005; 96374; 96376; 99285; J2270; Q9963; Q9967; U0002; 93010; 99284

== ENCOUNTER 2021-06-16 08:07 | Day surgery (SDC) | payer MEDICARE, MEDICAID ==
[~2021-06-16 08:07] MED LIST: Lactated Ringers 1,000 ML IV SCH; Lidocaine 1%/Sod Bicarbonate in NS 8.4% 1 ML Syringe IDERM PRN; Sodium Chloride 0.9% 10 ML Syringe FLUSH PRN; Sodium Chloride 0.9% 10 ML Syringe FLUSH SCH
[2021-06-16] MEDS ORDERED: Propofol 200 MG/20 ML SDV ONE ×2 (08:22→09:47)
[2021-06-16] MEDS ORDERED: Lidocaine 1% 4 ML ONE ×2 (08:25→09:47)
[2021-06-16] MEDS ORDERED: Lactated Ringers 1,000 ML ONE (10:55)
== END 2021-06-16 11:03 | disposition home or self-care (01) ==
LOC: JD.SDS 08:07
PROVIDERS: ATTEND Surgery
DX: D12.3 Benign neoplasm of transverse colon (principal); D12.7 Benign neoplasm of rectosigmoid junction; K57.30 Diverticulosis of large intestine without perforation or abscess without bleeding; K52.9 Noninfective gastroenteritis and colitis, unspecified; J44.9 Chronic obstructive pulmonary disease, unspecified; G47.33 Obstructive sleep apnea (adult) (pediatric); G40.909 Epilepsy, unspecified, not intractable, without status epilepticus; J45.909 Unspecified asthma, uncomplicated; I48.91 Unspecified atrial fibrillation; F32.A Depression, unspecified; K21.9 Gastro-esophageal reflux disease without esophagitis; F17.210 Nicotine dependence, cigarettes, uncomplicated; G43.909 Migraine, unspecified, not intractable, without status migrainosus; M79.7 Fibromyalgia; E66.9 Obesity, unspecified; Z90.49 Acquired absence of other specified parts of digestive tract; Z98.890 Other specified postprocedural states; Z79.899 Other long term (current) drug therapy; Z88.0 Allergy status to penicillin; Z88.2 Allergy status to sulfonamides; Z88.7 Allergy status to serum and vaccine; Z88.8 Allergy status to other drugs, medicaments and biological substances
CPT/HCPCS: 00811; J2704; J7120